=== PATIENT | male | born 1970 | race Caucasian/White ===

== ENCOUNTER 2022-12-22 09:14 | Outpatient (REF) | payer MEDICARE, SELFPAY | END 2022-12-22 09:15 | disposition home or self-care (01) | LOC: HO.LAB 09:14 | PROVIDERS: PCP Internal Medicine; Referring Provider Internal Medicine; Visit Provider Surgery | DX: L02.91 Cutaneous abscess, unspecified (principal) | CPT/HCPCS: 10060; 87070; 87205; 99202 ==

== ENCOUNTER → 2022-12-23 09:59 | Outpatient (BNVA) | payer BC, MEDICARE, SELFPAY | PROVIDERS: PCP Internal Medicine; Visit Provider Surgery | DX: Z48.00 Encounter for change or removal of nonsurgical wound dressing (principal); Z87.2 Personal history of diseases of the skin and subcutaneous tissue | CPT/HCPCS: 99211 ==

== ENCOUNTER → 2022-12-24 10:08 | Outpatient (BNVA) | payer MEDICARE, SELFPAY | PROVIDERS: PCP Internal Medicine; Visit Provider Surgery | DX: Z13.89 Encounter for screening for other disorder (principal) ==

== ENCOUNTER 2022-12-29 09:11 | Outpatient (REF) | payer MEDICARE, SELFPAY | END 2022-12-29 09:12 | disposition home or self-care (01) | LOC: HO.LAB 09:11 | PROVIDERS: PCP Internal Medicine; Visit Provider Surgery | DX: N49.2 Inflammatory disorders of scrotum (principal); Z79.899 Other long term (current) drug therapy | CPT/HCPCS: 87070; 87205; 99202 ==

== ENCOUNTER 2022-12-29 10:49 | Outpatient (REF) | payer SELFPAY | END 2022-12-29 10:50 | disposition home or self-care (01) | LOC: HO.LNP 10:49 | PROVIDERS: Visit Provider Surgery | DX: Z13.89 Encounter for screening for other disorder (principal) ==

== ENCOUNTER → 2022-12-30 10:17 | Outpatient (BNVA) | payer SELFPAY | PROVIDERS: PCP Internal Medicine; Visit Provider Surgery | DX: Z13.89 Encounter for screening for other disorder (principal) ==

== ENCOUNTER → 2022-12-31 10:16 | Outpatient (BNVA) | payer MEDICARE, SELFPAY | PROVIDERS: PCP Internal Medicine; Visit Provider Surgery | DX: Z48.00 Encounter for change or removal of nonsurgical wound dressing (principal) | CPT/HCPCS: 99211 ==

== ENCOUNTER → 2023-01-05 09:18 | Outpatient (BNVA) | payer MEDICARE, SELFPAY | PROVIDERS: PCP Internal Medicine; Visit Provider Surgery | DX: Z48.00 Encounter for change or removal of nonsurgical wound dressing (principal); Z87.2 Personal history of diseases of the skin and subcutaneous tissue | CPT/HCPCS: 99211 ==

== ENCOUNTER 2023-10-11 10:24 | Outpatient (REF) | payer MEDICARE, SELFPAY | END 2023-10-11 10:25 | disposition home or self-care (01) | LOC: HO.LNP 10:24 | PROVIDERS: PCP Internal Medicine; Visit Provider Surgery | DX: L02.214 Cutaneous abscess of groin (principal) | CPT/HCPCS: 10060; 87070; 87205; 99212 ==

== ENCOUNTER 2023-10-11 10:24 | Outpatient (AMB) | payer MEDICARE, SELFPAY ==
--- NOTE | 2023-10-11 10:25 | MHC.OFFVIS ---
Intake Vital Signs 10/11/23 10:35 Height 6 ft 1 in Weight 331 lb BMI 43.7 BP 148/72 H Blood Pressure Location Rt brachial Position Sitting Pulse 107 H Intake Visit Reasons: Recurrent abscess of groin Intake Note: Patient here for recurrent abscess on Rt groin. Recently started flaring due to stress from work. Patient was previously seen in December 2022 for Lt scrotum abscess. Patient has been doing witch dima soaks. Quality Assurance Monitor Required: No Accompanied by: Self / Same As Patient Allergies acetaminophen [From TYLENOL] Allergy (Intermediate, Verified 10/11/23 10:35) GI UPSET HPI HPI Comments History of Present Illness Details Patient with history of multiple groin abscesses presents with a similar 1 involving his right perineal area. He has had a several days time. His increasing size, become more painful and red. Chart was reviewed patient evaluate [facility] Medical History Diabetes mellitus Morbid obesity with BMI of 40.0-44.9, adult Surgical History History of right knee surgery Abscess Family History Mother No problems noted. Father No problems noted. Family/Other Substance use disorder Social History Housing: House Alcohol intake: never Patient Tobacco Use Status: Current everyday Tobacco user Tobacco use type: Cigar e-Cigarette/Vaping Use: Never Used Second Hand Smoke Exposure: No service: No Current occupational status: unemployed Cognitive needs: No Hearing needs: No Vision needs: Yes Physical Exam Vital Signs: Last Vital Signs Pulse 107 H 10/11/23 10:35 BP 148/72 H 10/11/23 10:35 BMI result Body Mass Index 43.7 Const Other: Very corpulent male Skin Other: Right mid groin crease abscess measuring approximately 4 x 3 cm. Office Procedures I&D Drain Details: Risks, benefits, alternative incision drainage of right groin abscess reviewed the patient included but not limited to bleeding, recurrence, numbness, pain, scarring the patient was to proceed. All questions were answered. After appropriate positioning, patient underwent 1% lidocaine and Betadine prep of a proximal 4 x 3 cm complex right groin crease abscess. Copious amounts of purulent material was retrieved. Cultures were obtained. Was irrigated, secured hemostasis, packed, and sterile dressing applied. Patient tolerated procedure well. 10089-Bplymwyz of Skin Abscess, complex All charges added?: Procedure code (CPT) selection complete Assessment & Plan Assessment & Plan (1) Abscess of groin, right: Code(s): L02.214 - Cutaneous abscess of groin Plan: Patient has been given antibiotics, allergies, VNA services provided by the office, and will see me as directed or p.r.n. Orders: Orders AMB Incision & Drainage Today L02.214 - Cutaneous abscess of groin Medications: New hydrocodone-acetaminophen 5-325 mg Partial Fill upon patient request. 1 tab PO Q4-6H PRN 30 tabs 0RF pain sulfamethoxazole-trimethoprim 400-80 mg (Bactrim) 1 tab PO BID 20 tabs 0RF Infection Coding Level of Care Code New Pt Level 5 (61444) Diagnoses Abscess of groin, right L02.214 CPT Codes I&D Drain - Drain 2: 71220-Juofeapv of Skin Abscess, complex ([id number])
[2023-10-11 10:35] VITALS: BP 148/72; PULSE 107; BMI 43.7
== END 2023-10-11 11:03 | disposition home or self-care (01) ==
PROVIDERS: PCP Internal Medicine; Visit Provider Surgery
DX: L02.214 Cutaneous abscess of groin (principal)
CPT/HCPCS: 10060; 99214

== ENCOUNTER → 2023-10-12 09:57 | Outpatient (BNVA) | payer MEDICARE, SELFPAY | PROVIDERS: PCP Internal Medicine; Visit Provider Surgery | DX: Z48.01 Encounter for change or removal of surgical wound dressing (principal) | CPT/HCPCS: 99211 ==

== ENCOUNTER → 2023-10-13 09:00 | Outpatient (BNVA) | payer MEDICARE, SELFPAY | PROVIDERS: PCP Internal Medicine; Visit Provider Surgery | DX: Z48.00 Encounter for change or removal of nonsurgical wound dressing (principal) | CPT/HCPCS: 99211 ==

== ENCOUNTER 2023-10-18 10:00 | Outpatient (AMB) | payer MEDICARE, SELFPAY ==
--- NOTE | 2023-10-18 10:06 | MHC.OFFVIS ---
Intake Vital Signs 10/18/23 10:07 Height 6 ft 1 in Weight 325 lb BMI 42.9 BP 168/77 H Blood Pressure Location Rt brachial Position Sitting Pulse 101 H Intake Visit Reasons: s/p I&D abscess of RT groin Intake Note: Patient here s/p I&D abscess on Rt groin. Patient finished Bactrin course. Patient c/o: oozing, pain. Requesting abx refill. 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 He has marked improvement of his symptoms. [facility] Medical History Diabetes mellitus Morbid obesity with BMI of 40.0-44.9, adult Surgical History History of right knee surgery Abscess Family History Mother No problems noted. Father No problems noted. Family/Other Substance use disorder Social History Housing: House Alcohol intake: never Patient Tobacco Use Status: Current everyday Tobacco user Tobacco use type: Cigar e-Cigarette/Vaping Use: Never Used Second Hand Smoke Exposure: No service: No Current occupational status: unemployed Cognitive needs: No Hearing needs: No Vision needs: Yes Physical Exam Vital Signs: Last Vital Signs Pulse 101 H 10/18/23 10:07 BP 168/77 H 10/18/23 10:07 BMI result Body Mass Index 42.9 Other: Right groin wound is almost completely healed by secondary intention. Complete resolution of the infective process. Assessment & Plan Assessment & Plan (1) Abscess of groin, right: Code(s): L02.214 - Cutaneous abscess of groin Plan Patient has been given local instructions, and will follow-up p.r.n.. Coding Level of Care Code Global (78472) Diagnoses Abscess of groin, right L02.214
[2023-10-18 10:07] VITALS: BP 168/77; PULSE 101; BMI 42.9
== END 2023-10-18 10:08 | disposition home or self-care (01) ==
PROVIDERS: PCP Internal Medicine; Visit Provider Surgery
DX: L02.214 Cutaneous abscess of groin (principal)
CPT/HCPCS: 99024

== ENCOUNTER → 2023-10-18 10:00 | Outpatient (BNVA) | payer MEDICARE, SELFPAY | PROVIDERS: PCP Internal Medicine; Visit Provider Surgery | DX: Z48.817 Encounter for surgical aftercare following surgery on the skin and subcutaneous tissue (principal); Z98.890 Other specified postprocedural states | CPT/HCPCS: 99212 ==

== ENCOUNTER 2024-03-12 10:22 | Outpatient (AMB) | payer MEDICARE, SELFPAY ==
--- NOTE | 2024-03-12 10:32 | AM.OFFVISMDC ---
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 PPI handed to patient. Declines pneumonia vaccine. Had Cologuard done 2022 which was negative and next will be 2025. A1c is elevated and he declines insulin but is willing to start metformin. He is morbidly obese with a BMI of 43.8 and he said he can do diet and exercise to decrease the weight. Last diabetic eye exam was over a year ago. Declines weight loss surgery. Walks with a cane for gait stability and has limited left arm movement secondary to his neck but declines any type of surgery. [facility] Medical History (Updated 03/12/24 @ 12:23 by Aileen Olson MD) Diabetes mellitus Morbid obesity with BMI of 40.0-44.9, adult Surgical History History of right knee surgery Abscess Family History Mother No problems noted. Father No problems noted. Family/Other Substance use disorder Social History Housing: House Alcohol intake: never Patient Tobacco Use Status: Current everyday Tobacco user Tobacco use type: Cigar e-Cigarette/Vaping Use: Never Used Second Hand Smoke Exposure: No service: No Current occupational status: unemployed Cognitive needs: No Hearing needs: No Vision needs: Yes Questionnaire Medicare Wellness Checkup What gender do you identify with?: male During the past 4 weeks, how much have you been bothered by emotional problems such as feeling anxious, depressed, irritable, sad or downhearted, and blue?: not at all During the past 4 weeks, has your physical & emotional health limited your social activities with family, friends, neighbors, or groups?: extremely During the past 4 weeks, how much bodily pain have you generally had?: severe pain During the past 4 weeks, was someone available to help you if you needed & wanted help?: yes, as much as I wanted During the past 4 weeks, what was the hardest physical activity you could do for at least 2 minutes?: very light Can you get to places out of walking distance without help? (For eg., can you travel alone on buses, taxis or drive your car?): Yes (short distance) Can you go shopping for groceries or clothes without someone's help?: No Can you prepare your own meals?: Yes Can you do your housework without help?: No Because of any health problems, do you need the help of another person with your personal care needs such as eating, bathing, dressing or getting around the house?: No Can you handle your own money without help?: Yes During the past 4 weeks, how would you rate your health in general?: poor During the past 4 weeks how have things been going for you?: very bad; could hardly be worse Are you having difficulties driving your car?: sometimes Do you always fasten your seat belt when you are in a car?: yes, usually During past 4 weeks, have you been bothered by the following: never: Falling or dizzy when standing up, Teeth or denture problems?, Problems using the telephone? and Tiredness or fatigue? and always: Sexual problems? and Trouble eating well? Have you fallen 2 or more times in the past year?: Yes Are you afraid of falling?: No Are you a smoker?: yes, and I might quit During the past 4 weeks, how many drinks of wine, beer, or other alcoholic beverages did you have?: no alcohol at all Do you exercise for about 20 minutes 3 or more times a week?: no, I usually do not exercise this much Have you been given information to help with the following?: no: Hazards in your house that might hurt you? and no: Keeping track of your medications? How often do you have trouble taking medicines the way you have been told to take them?: I always take medicine as prescribed How confident are you that you can control & manage most of your health problems?: somewhat confident What is your race?: or origin or descent Mini Mental State Exam (MMSE) Orientation What is the (year) (season) (date) (day) (month)?: year, season, date, day and month Where are we (state) (county) (town or city) (hospital) (floor)?: state, county, town or city, hospital/clinic and floor Registration Name of 3 unrelated objects clearly and slowly, then ask patient to repeat all 3 of them. (1st repeat determines score. Make sure they can repeat all three): object 1, object 2 and object 3 Attention & Calculation (CHOOSE ONE) Spell WORLD backwards (DLROW): 5 letters Recall Ask patient to repeat the 3 items from question #3.: object 1, object 2 and object 3 Language Show patient a wristwatch & ask what it is. Repeat for pencil.: watch and pencil Ask the patient to repeat the phrase 'No ifs, ands, or buts' after you.: correct Ask the patient to 'take a piece of paper with their right hand' 'fold paper in half' 'place paper on floor': take paper in right hand, fold paper in half and place paper on floor Print the sentence 'CLOSE YOUR EYES' on a piece. If patient actually closes eyes then score.: followed written direction Give patient a blank piece of paper & ask to write a sentence. Score if it contains a noun & verb.: sentence contains subject and verb Ask patient to copy figure of intersecting pentagons exactly. Score if all 10 angles & 2 intersects are included.: all 10 angles present & 2 are intersected Score Score: 30 Activity of Daily Living Bathing - sponge bath, tub bath or shower: receives no assistance (gets in/out by self, if usual bathing means Dressing - getting clothes from closets & drawers, including inner/outer garments & fasteners.: gets clothes & gets completely dressed without help Toileting - going to the 'toilet room' for urine/bowel elimination & cleaning self/arranging clothes: goes to toilet room, cleans self, arranges clothes without help Transfer: moves in & out of bed and chair without help (may use support object) Continence: controls urination/bowel movements completely by self Feeding: feeds self without help Total Score: 0 Information obtained from: patient Using telephone: independent Traveling: independent Shopping: needs assistance Preparing meals: needs assistance Housework: dependent Taking medicine: independent Managing money: independent PHQ-9 Over the last 2 weeks, how often have you been bothered by any of the following problems? 1. Little interest or pleasure in doing things: not at all 2. Feeling down, depressed, or hopeless: not at all 3. Trouble falling or staying asleep, or sleeping too much: not at all 4. Feeling tired or having little energy: not at all 5. Poor appetite or overeating: more than half the days 6. Feeling bad about yourself - or that you are a failure or have let yourself or your family down: not at all 7. Trouble concentrating on things, such as reading the newspaper or watching television: more than half the days 8. Moving or speaking so slowly that other people could have noticed. Or the opposite - being so fidgety or restless that you have been moving around a lot more than usual: not at all 9. Thoughts that you would be better off or of hurting yourself in some way: not at all Total score: 4 Depression Screening Interpretation: Negative Depression Screening Done: Yes 60764 - PHQ-9 Billing: Yes Source: Developed by Drs. Marco Antonio Lomeli, Shawnee Rivera, Roni Ho and colleagues, with an educational jacinda from [employer]. AUDIT C Alcohol Use Questionnaire (AUDIT-C) 1. How often do you have a drink containing alcohol?: Never Total Score: 0 Thrive Questionnaire Date Thrive assessed: 03/12/24 I am a: Patient What is your living situation today?: I have a steady place to live Within the past 12 months, did the food you bought not last and you didn't have the money to get more?: Never true Within the past 12 months, did you worry whether your food would run out before you got money to buy more?: Never true Do you have trouble paying for medicines?: No Do you have trouble getting transportation to medical appointments?: No Do you have trouble paying your heating and electricity bill?: No Do you have trouble taking care of your child, family member or friend?: No Do you have trouble with day-to-day activities such as bathing, preparing meals, shopping, managing finances, etc.?: Yes Are you currently unemployed and looking for a job?: No Are you interested in more education?: No Please select the resources that you would like help with: None Currently or been in a relationship where the following occur: no concerns reported THRIVE Score: 0 JV-7 AMB Questionnaire JV-7 Date JV - 7 assessed: 03/12/24 Feeling nervous, anxious, or on edge: 0 = Not at all Not being able to stop or control worryin = Not at all Worrying too much about different things: 0 = Not at all Trouble relaxin = Not at all Being so restless that it is hard to sit still: 0 = Not at all Becoming easily annoyed or irritable: 0 = Not at all Feeling afraid as if something awful might happen: 0 = Not at all Total JV-7 score (0-4 normal; 5-9 mild; 10-14 moderate; 15-21 severe): 0 Source: Developed by Drs. Marco Antonio Lomeli, Shawnee Rivera, Roni Ho and colleagues, with an educational jacinda from [employer]. Review of Systems Const All systems reviewed & are unremarkable except as noted in HPI and below Eyes Reports no additional complaints, Denies change in vision and Denies other visual disturbances Card Denies chest pain at rest, Denies chest pain with activity, Denies edema, Denies irregular heart rhythm, Denies claudication, Denies dyspnea, Denies dyspnea on exertion, Denies orthopnea, Denies paroxysmal nocturnal dyspnea and Denies slow heart rate Resp Denies cough, Denies dyspnea and Denies dyspnea on exertion GI Denies abdominal pain, Denies change in bowel habits, Denies excessive flatus, Denies nausea and Denies vomiting Denies urinary hesitancy, Denies urinary incontinence and Denies urinary urgency Physical Exam Vital Signs: Last Vital Signs BP 158/100 H 03/12/24 10:37 BMI result Body Mass Index 43.8 Const Limitations: ambulation with cane Resp Effort & Inspection: normal respiratory effort Auscultation: clear to auscultation bilaterally Cardio Jugular venous distension: no JVD Rate: regular rate Rhythm: regular rhythm Heart sounds: S1 normal heart sound present and S2 normal heart sound present Neuro Romberg Test: Negative Results AMB Hemoglobin A1c AMB Hemoglobin A1c 9.7 % Last Edit by JAILENE Ledemza on 03/12/24 10:56 Results Reviewed Results Reviewed: Laboratory Last Values Hgb A1c (Clinic) 9.7 % (4.0-6.0) H 03/12/24 10:52 Assessment & Plan Assessment & Plan (1) Encounter for subsequent annual wellness visit (AWV) in Medicare patient: Code(s): Z00.00 - Encounter for general adult medical examination without abnormal findings Plan: Repeat in a year (2) Diabetes mellitus: Comment: Refuse to test his glucose, do labs or take medications Code(s): E11.9 - Type 2 diabetes mellitus without complications Plan: Start metformin. A1c goal is equal or less than 7%. (3) Morbid obesity with BMI of 40.0-44.9, adult: Code(s): E66.01 - Morbid (severe) obesity due to excess calories; Z68.41 - Body mass index [BMI] 40.0-44.9, adult Plan: Start diet and exercise. BMI goal is less than 30. Orders: Orders Microalbumin, Random (w Creat) Today E11.9 - Type 2 diabetes mellitus without complications Thyroid Stimulating Hormone Today E66.01 - Morbid (severe) obesity due to excess calories, Z68.41 - Body mass index [BMI] 40.0-44.9, adult AMB Hemoglobin A1c Today E11.9 - Type 2 diabetes mellitus without complications Lipid Panel Today E11.9 - Type 2 diabetes mellitus without complications Vitamin D 25-OH Total Today E55.9 - Vitamin D deficiency, unspecified Comprehensive [place]. Panel Fast Today E11.9 - Type 2 diabetes mellitus without complications Complete Blood Count Auto Diff Today E66.01 - Morbid (severe) obesity due to excess calories, Z68.41 - Body mass index [BMI] 40.0-44.9, adult Medications: New metformin 500 mg PO BID 180 tabs 3RF 90 days E11.9 - Type 2 diabetes mellitus without complications Quality Reporting (2019) Depression/Bipolar (159/160/161/177) PHQ-9: Total score: 4 Coding Level of Care Code Medicare Subsequent (G0439) Diagnoses Encounter for subsequent annual wellness visit (AWV) in Medicare patient Z00.00 Diabetes mellitus E11.9 Morbid obesity with BMI of 40.0-44.9, adult E66.01; Z68.41 Time Spent (min) 35
[2024-03-12 10:37] VITALS: BP 158/100; BMI 43.8
== END 2024-03-12 11:23 | disposition home or self-care (01) ==
PROVIDERS: PCP Internal Medicine; Visit Provider Internal Medicine
DX: Z00.00 Encounter for general adult medical examination without abnormal findings (principal); E11.9 Type 2 diabetes mellitus without complications; E66.01 Morbid (severe) obesity due to excess calories; Z68.41 Body mass index [BMI] 40.0-44.9, adult
CPT/HCPCS: 83036; G0439

== ENCOUNTER 2024-05-10 13:32 | Outpatient (AMB) | payer MEDICARE, SELFPAY ==
--- NOTE | 2024-05-10 13:32 | A.OFFVIS_ITS ---
Vital Signs 05/10/24 13:33 Height 6 ft 1 in Weight 332 lb 0.011 oz BMI 43.8 Intake Visit Reasons: Right groin abscess Intake Note: This patient presents for an assessment for a right groin abscess. Patient c/o; right groin abscess. 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 He has a history of this and had been following Dr. Dye last year for similar problems. He says that he has another right groin abscess. He noticed this about a week ago and this seems to be persistently tender and increasing in size. He has a known diabetic. [facility] Medical History Diabetes mellitus Morbid obesity with BMI of 40.0-44.9, adult Surgical History History of right knee surgery Abscess Family History Mother No problems noted. Father No problems noted. Family/Other Substance use disorder Social History Housing: House Alcohol intake: never Patient Tobacco Use Status: Current everyday Tobacco user Tobacco use type: Cigar e-Cigarette/Vaping Use: Never Used Second Hand Smoke Exposure: No service: No Current occupational status: unemployed Cognitive needs: No Hearing needs: No Vision needs: Yes Review of Systems Const Denies chills and Denies fever(s) Card Denies chest pain, Denies dyspnea and Denies dyspnea on exertion Resp Denies cough, Denies dyspnea and Denies dyspnea on exertion GI Denies hematochezia and Denies change in bowel habits Denies hematuria and Denies difficulty urinating Musc Denies back pain and Denies limited range of motion Neuro Denies focal weakness and Denies convulsions Psych Denies depression and Denies mood swings Physical Exam Vital Signs: BMI result Body Mass Index 43.8 Const General: comfortable and no acute distress Orientation/consciousness: patient oriented x3 Neck Neck: Yes no lymphadenopathy Resp Auscultation: clear to auscultation bilaterally Cardio Rhythm: regular rhythm GI Palpation (GI): Soft to palpation, nontender and no guarding Skin Other: Right groin with note of a fluctuant mass, about 2.5 cm, tender Neuro General: patient oriented x3 Office Procedures I&D Drain Details: He was in frog-leg position. The area of the abscess on the right groin was prepped and draped. Lidocaine 1% was used for local anesthesia. I made an incision on the skin overlying this fluctuant mass with a blade 15. This was carried down to enter an abscess cavity. Purulent fluid was drained. I probed the cavity with a Q-tip and this appeared to be empty Dressings were applied. The procedure was completed. He tolerated procedure well. There were no immediate complications. 73100-Mekzmral of Skin Abscess, complex All charges added?: Procedure code (CPT) selection complete Assessment & Plan Assessment & Plan (1) Abscess of groin, right: Code(s): L02.214 - Cutaneous abscess of groin Category: Surgical Plan: I explained to him it would be best to do an I and D again. I reviewed with him the technique of this procedure. I explained the risks including but not limited to bleeding and infections, as well as the benefits and alternatives. He would given consent. I&D was done under local anesthesia. He tolerated that well. Dressings were applied he was given wound care instructions. He can follow up with me on a p.r .n. basis. Coding Level of Care Code Est Pt Level 3 (76022) Diagnoses Abscess of groin, right L02.214 CPT Codes I&D Drain - Drain 2: 01787-Wwzdvoyg of Skin Abscess, complex ([id number])
[2024-05-10 13:33] VITALS: BMI 43.8
== END 2024-05-10 14:15 | disposition home or self-care (01) ==
PROVIDERS: PCP Internal Medicine; Visit Provider Surgery
DX: L02.214 Cutaneous abscess of groin (principal)
CPT/HCPCS: 10060; 99213

== ENCOUNTER → 2024-05-10 13:32 | Outpatient (BNVA) | payer MEDICARE, SELFPAY | PROVIDERS: PCP Internal Medicine; Visit Provider Surgery | DX: L02.214 Cutaneous abscess of groin (principal) | CPT/HCPCS: 10060; 99212 ==

== ENCOUNTER 2025-03-20 12:06 | Emergency (ER) | payer MEDICARE, SELFPAY ==
--- NOTE | ~2025-03-20 | XR_ITS ---
EXAMINATION: XR CHEST CLINICAL INFORMATION: cp COMPARISON: None available. TECHNIQUE: 2 views of the chest were obtained. FINDINGS: The cardiac, hilar, and mediastinal contours are normal. The lungs are clear bilaterally. There is no pneumothorax or pleural effusion. There is no focal osseous or soft tissue abnormality. XR/XR chest 2V IMPRESSION: Normal chest. Electronically signed by: Veto Ahmadi MD 03/20/2025 01:42 PM EDT
--- NOTE | ~2025-03-20 | CT_ITS ---
EXAMINATION: CT ANGIOGRAM CHEST CLINICAL INFORMATION: Dyspnea, elevated d-dimer. COMPARISON: No prior CT. Chest radiograph dated earlier same day. TECHNIQUE: Multiple axial images were obtained through the chest after the administration of 50 mL of Omnipaque 350 intravenous contrast. Extensive vascular post-processing including two-dimensional and three-dimensional reformatted images were created and reviewed on an independent workstation. This CT examination was performed using dose optimization techniques as appropriate, variously including the following: *Automated exposure control *Adjustment of mA and/or kV according to patient size (this includes techniques or standardized protocols for targeted exams where dose is matched to indication/reason for exam; i.e. extremities or head) *Use of iterative reconstruction technique FINDINGS: VASCULAR: -There is diagnostic opacification of the pulmonary arterial system. There is no pulmonary embolus. Main pulmonary artery is normal in size. There is no right heart strain and there is no reflux of contrast into the hepatic veins. -The aorta is normal in caliber and contour. There is no aneurysm or acute aortic syndrome. -The heart size is normal. There is no pericardial effusion. LUNGS: -There are no consolidations or abnormal groundglass opacities. -There is thickening of the small airways suggesting inflammatory airways disease. -There are secretions within the distal trachea just above the chari. Central airways otherwise patent. -There is a 5 mm nodule in the peripheral right lower lobe (series 5, image 88). -There is a 5 mm nodule in the lateral left upper lobe (series 5, image 35). -There is a 5 mm fissural nodule in the left major fissure, consistent with intrapulmonary lymph node (series 5, image 56). -There is mild fibrosis abutting spinal osteophytes in the medial right lower lobe. -There is no effusion or pneumothorax. MEDIASTINUM: -The esophagus is mildly patulous. There is a small type I hiatus hernia. -There is no adenopathy or mass. -Normal thyroid. AXILLA/CHEST WALL: No masses or abnormal lymph nodes. IMAGED UPPER ABDOMINAL CONTENTS: -Normal. OSSEOUS STRUCTURES: -No suspicious lytic or blastic bone lesions. -There are degenerative changes throughout the spine. CT/CT angio chest PE protocol IMPRESSION: 1. There is no evidence of pulmonary embolus. There is no evidence of acute aortic syndrome. 2. There is mild thickening of the small airways, suggesting inflammatory airways disease. 3. The lungs are clear without evidence of active disease otherwise. 4. There are 5 mm nodules in the right lower lobe and lateral left upper lobe. These are nonspecific in one year follow-up suggested in a high-risk patient. 5. Mildly patulous esophagus with a small type I hiatus hernia. Electronically signed by: Veto Ahmadi MD 03/20/2025 03:35 PM EDT RP
--- NOTE | 2025-03-20 12:33 | ECG_ITS ---
Test Reason : CHEST PAIN Blood Pressure : */* mmHG Vent. 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
--- NOTE | 2025-03-20 12:46 | ED_ITS ---
HPI - Chest Pain General Chief Complaint: Chest Pain Stated Complaint: Chest Pain Time Seen by Provider: 03/20/25 13:52 Source: patient Mode of arrival: ambulatory History of Present Illness ED Provider: HPI narrative: 54-year-old male, does not take medications regular basis not because he is not prescribed by because he refuses to, smokes marijuana and cigars, presenting with left-sided sternal chest pain nonradiating, no fevers or chills, no hemoptysis reported, pain is worse with a deep breath, no recent surgeries no prolonged travel no history of DVTs or PEs. Related Data Previous Rx's ?Medication ?Instructions ?Recorded metformin 500 mg tablet 500 mg PO BID 90 days #180 tabs 03/12/24 Allergies Allergy/AdvReac Type Severity Reaction Status Date / Time acetaminophen [From TYLENOL] Allergy Intermediate GI UPSET Verified 03/20/25 12:49 Review of Systems 2 Constitutional: Constitutional: Reports as per [facility] Past Medical History Medical History Diabetes mellitus Morbid obesity with BMI of 40.0-44.9, adult Surgical History History of right knee surgery Abscess Family History Family History Mother No problems noted. Father No problems noted. Family/Other Substance use disorder Social History Social History Housing: House Alcohol intake: never Patient Tobacco Use Status: Current everyday Tobacco user Tobacco use type: Cigar e-Cigarette/Vaping Use: Never Used Second Hand Smoke Exposure: No Advance Directives: No Advance Directives Information Provided: Yes Do you have a plan to hurt others: No Plan service: No Current occupational status: unemployed Cognitive needs: No Hearing needs: No Vision needs: Yes Physical Exam 2 Vital Signs: Vital Signs: Last Vital Signs Temp 97 F 03/20/25 15:30 Pulse 66 03/20/25 15:30 Resp 17 03/20/25 15:30 BP 162/90 H 03/20/25 15:30 Pulse Ox 98 03/20/25 15:30 O2 Del Method Room Air 03/20/25 15:30 BMI result Body Mass Index 39.1 * Gen: ?Overall well-appearing patient * HEENT: PERRLA, EOMI, MMM, * Neck: Supple, no LAD * CV: RRR, no obvious murmurs appreciated * Resp: ?No wheezing rales rhonchi no stridor moving air well, no chest wall tenderness * Abd: ?Bowel sounds are present, no tenderness no rebound no rigidity * MSK: FROM, strength 5/5 all extremities * Skin: Warm, dry, intact, * Neuro: ?Alert and oriented x3, moving upper and lower extremities symmetrically, no obvious facial asymmetry noted Course Course Course Narrative: This is a Rapid Medical Exam performed in triage by Tran Hanley PA-C. Full HPI, ROS and PE to be performed by primary ED provider. 54 yo M w/PMHx obesity, DM (noncompliant on meds), presenting to the ED c/o CP x few days, worse today, with assoc SOB. Pain described as sharpn & tightness. denies N/V PE: NAD, nontoxic appearing, talking in complete sentences Plan: EKG, labs, CXR Medications Administered Discontinued Medications Generic Name Dose Route Start Last Admin Trade Name Freq PRN Reason Stop Dose Admin Iohexol 100 ml 03/20/25 15:14 03/20/25 15:15 Iohexol 350 Mg/Ml 100 Ml Infus..Btl IV 03/20/25 15:15 75 ml ONCE ONE Administration Medical Decision Making Medical Decision Making [facility] Narrative: We will workup for ACS, unable to PERC out due to age but no hypoxia tachycardic so my suspicion for PE is low, ECG did not show any ongoing cardiac ischemia, chest x-ray to evaluate for other considerations as below, if workup specifically cardiac workup was negative anticipating discharge, Differential Diagnosis Differential Diagnoses: The differential diagnosis associated with the presentation includes ACS, pneumothorax, pneumonia, CHF, PE, Boerhaave syndrome Admission/Observation Consideration of admission/observation: Escalation of care including admission/observation considered Lab Data [facility] Lab Attestation statement: I reviewed the patient's lab results. 03/20/25 13:54 03/20/25 13:54 Labs: Lab Results 03/20/25 03/20/25 03/20/25 Range/Units 13:54 13:58 14:59 WBC 6.7 (4.8-10.8) X10*3/uL RBC 5.27 (4.60-5.80) X10*6/uL Hgb 14.3 (14.0-18.0) g/dl Hct 43.5 (42.0-52.0) % MCV 82.5 (80.0-98.0) fL MCH 27.1 (27.0-33.0) pg MCHC 32.9 (31.0-36.0) g/dl RDW 14.3 (11.0-16.0) % Plt Count 192 (160-400) X10*3/uL MPV 10.0 (9.4-12.4) fL Immature Gran % (Auto) 0.2 (0.0-0.4) % Neut % (Auto) 60.7 (45-73) % Lymph % (Auto) 29.4 (20-40) % [place] % (Auto) 6.8 (2-11) % Eos % (Auto) 2.4 (0-4) % Baso % (Auto) 0.5 (0-2) % Lymph # (Auto) 2.0 (1.2-4.9) X10*3/uL [place] # (Auto) 0.5 (0.1-1.2) X10*3/uL Eos # (Auto) 0.2 (0.0-0.4) X10*3/uL Baso # (Auto) 0.0 (0.0-0.2) X10*3/uL Abs Immat Gran (auto) 0.01 (0.00-0.03) X10*3/uL Absolute Neuts (auto) 4.1 (2.0-8.3) x10*3/uL Absolute Nucleated RBC 0.000 (0.0-0.012) X10*3/uL Nucleated RBC % (auto) 0.0 (0.0-0.2) /100WBC D-Dimer High Sensitivty 276 NG/ML Sodium 140 (135-145) mmol/L Potassium 4.5 (3.3-5.1) mmol/L Chloride 106 (96-108) mmol/L Carbon Dioxide 28 (22-29) mmol/L Anion Gap 11 L (12-20) BUN 12 (9-16) mg/dL Creatinine 0.71 (0.5-1.4) mg/dL Estim Creat Clear Calc 169.1 Estimated GFR > 60 POC Glucose 125 H (60-115) mg/dL Random Glucose 140 H (60-115) mg/dL Estimat Average Glucose 163 mg/dL Hemoglobin A1c % 7.3 H (<6.0) % Calcium 9.2 (8.4-10.2) mg/dL Magnesium 2.1 (1.6-2.6) mg/dL Total Bilirubin 0.4 (0.0-1.0) mg/dL Direct Bilirubin 0.2 (0.0-0.5) mg/dL AST 21 (5-37) U/L ALT 15 (0-40) U/L Alkaline Phosphatase 69 (39-117) U/L Troponin I High Sens < 2.7 (<3.5-35.0) ng/L Total Protein 7.1 (6.5-8.0) g/dL Albumin 4.4 (3.5-5.0) g/dL Independent Interpretation I performed an independent interpretation of an: EKG (71 otherwise normal ECG without dysrhythmia, AV dian blocks or ST-T changes to suspect underlying ACS, my independent interpretation) Radiology Impression Discussion of test interpretation with radiology: I have reviewed the radiologist's reading. Radiologist Impression: [address] [address] XRay Report IMPRESSION: Normal chest. [address] [address] [address] Scan Report Signed Patient: Sumit Edgar MR#: [id number] : 1970 Acct:[id number] Age/Sex: 54 / M ADM Date: 03/20/25 Loc: .ED Attending Dr: Ordering Physician: Siddharth Moncada DO Date of Service: 03/20/25 Procedure(s): CT angio chest PE protocol Accession Number(s): [id number] cc: Aileen Lee MD; Siddharth Moncada DO~ Report Number: [id number]: Total DLP = 530.00 mGy-cm EXAMINATION: CT ANGIOGRAM CHEST CLINICAL INFORMATION: Dyspnea, elevated d-dimer. COMPARISON: No prior CT. Chest radiograph dated earlier same day. TECHNIQUE: Multiple axial images were obtained through the chest after the administration of 50 mL of Omnipaque 350 intravenous contrast. Extensive vascular post-processing including two-dimensional and three-dimensional reformatted images were created and reviewed on an independent workstation. This CT examination was performed using dose optimization techniques as appropriate, variously including the following: *Automated exposure control *Adjustment of mA and/or kV according to patient size (this includes techniques or standardized protocols for targeted exams where dose is matched to indication/reason for exam; i.e. extremities or head) *Use of iterative reconstruction technique FINDINGS: VASCULAR: -There is diagnostic opacification of the pulmonary arterial system. There is no pulmonary embolus. Main pulmonary artery is normal in size. There is no right heart strain and there is no reflux of contrast into the hepatic veins. -The aorta is normal in caliber and contour. There is no aneurysm or acute aortic syndrome. -The heart size is normal. There is no pericardial effusion. LUNGS: -There are no consolidations or abnormal groundglass opacities. -There is thickening of the small airways suggesting inflammatory airways disease. -There are secretions within the distal trachea just above the chari. Central airways otherwise patent. -There is a 5 mm nodule in the peripheral right lower lobe (series 5, image 88). -There is a 5 mm nodule in the lateral left upper lobe (series 5, image 35). -There is a 5 mm fissural nodule in the left major fissure, consistent with intrapulmonary lymph node (series 5, image 56). -There is mild fibrosis abutting spinal osteophytes in the medial right lower lobe. -There is no effusion or pneumothorax. MEDIASTINUM: -The esophagus is mildly patulous. There is a small type I hiatus hernia. -There is no adenopathy or mass. -Normal thyroid. AXILLA/CHEST WALL: No masses or abnormal lymph nodes. IMAGED UPPER ABDOMINAL CONTENTS: -Normal. OSSEOUS STRUCTURES: -No suspicious lytic or blastic bone lesions. -There are degenerative changes throughout the spine. CT/CT angio chest PE protocol IMPRESSION: 1. There is no evidence of pulmonary embolus. There is no evidence of acute aortic syndrome. 2. There is mild thickening of the small airways, suggesting inflammatory airways disease. 3. The lungs are clear without evidence of active disease otherwise. 4. There are 5 mm nodules in the right lower lobe and lateral left upper lobe. These are nonspecific in one year follow-up suggested in a high-risk patient. 5. Mildly patulous esophagus with a small type I hiatus hernia. Discharge Plan Discharge Clinical Impression: Chest pain, precordial Patient Disposition: Home, Self-Care Additional Instructions: Diagnosis and Initial Evaluation: You have been evaluated in the Emergency Department (ED) for chest pain. Based on your clinical assessment, electrocardiogram (ECG), and high-sensitivity cardiac troponin (hs-cTn) levels, you have been classified as low-risk for acute coronary syndrome (ACS) and myocardial infarction (NM). You also had CAT scan of the chest to make sure there are no blood clots, and there are some nonspecific nodules that will require outpatient follow-up and repeat CAT scan at some point within 6 months to a year for monitoring, I recommend to make sure you have follow up with the PCP. Otherwise for your pain you can take Naprosyn 500 mg twice a day or Tylenol 975 mg every 6 hours, worsening symptoms come back to the ER, see my discharge instructions as below Follow-Up Care: ? Primary Care Provider (PCP) or Public Health Physician: It is important to follow up with your primary care provider or abstract writer within the next 14 to 30 days. This follow-up is crucial to ensure that any underlying conditions are managed appropriately and to discuss any further testing that may be needed. ? Notification: If you have an established PCP or abstract writer, they have been notified of your ED visit to facilitate continuity of care. Self-Care and Monitoring: ? Medications: Continue taking any prescribed medications as directed. If you have been given new medications, ensure you understand how and when to take them. ? Activity: Resume normal activities as tolerated. Avoid strenuous activities until you have discussed them with your healthcare provider. ? Diet: Maintain a heart-healthy diet, low in saturated fats, cholesterol, and sodium. Red Flags: Seek immediate medical attention if you experience any of the following: ? New or worsening chest pain ? Shortness of breath ? Dizziness or fainting ? Pain radiating to your arm, neck, or jaw ? Sweating, nausea, or vomiting Additional Testing: In some cases, outpatient testing such as a stress test or imaging may be recommended to further evaluate your heart health. Your follow-up provider will discuss this with you if necessary. Mental Health: Anxiety and stress can contribute to chest pain. Consider discussing any concerns with your healthcare provider, who may recommend screening for anxiety or depression and appropriate management strategies. Contact Information: If you have any questions or concerns before your follow-up appointment, please contact your healthcare provider or the ED where you were evaluated. Summary: You have been discharged from the ED with a low risk of serious heart conditions. Follow the instructions above, attend your follow-up appointments, and seek immediate care if you experience any red flags. Prescriptions: No Action metformin 500 mg tablet 500 mg PO BID 90 Days Qty: 180 3RF Referrals: Aileen Lee MD [Primary Care Provider] - Print Language: Anguillan
[2025-03-20 12:47] VITALS: BP 148/85; PULSE 68; RESP 18; TEMP 36.5; O2SAT 99; BMI 39.1
[2025-03-20 14:02] LABS: MANUAL DIFF FLAG NO
[2025-03-20 14:08] LABS: Hematocrit 43.5 % (42.0-52.0); Hemoglobin 14.3 g/dl (14.0-18.0); Imm Gran Pct Auto 0.2 % (0.0-0.4); Mean Corpuscular HGB Conc 32.9 g/dl (31.0-36.0); Mean Corpuscular Hemoglobin 27.1 pg (27.0-33.0); Mean Corpuscular Volume 82.5 fL (80.0-98.0); Neutrophils Percent Auto 60.7 % (45-73); Platelet Count 192 X10*3/uL (160-400); Red Blood Count 5.27 X10*6/uL (4.60-5.80); Red Cell Distribution Width 14.3 % (11.0-16.0); White Blood Count 6.7 X10*3/uL (4.8-10.8)
[2025-03-20 14:09] LABS: Basophils Percent Auto 0.5 % (0-2); Eosinophils Absolute Auto 0.2 X10*3/uL (0.0-0.4); Eosinophils Percent Auto 2.4 % (0-4); Imm Gran Abs Auto 0.01 X10*3/uL (0.00-0.03); Lymphocytes Percent Auto 29.4 % (20-40); Monocytes Absolute Auto 0.5 X10*3/uL (0.1-1.2); Monocytes Percent Auto 6.8 % (2-11); Neutrophils Absolute Auto 4.1 x10*3/uL (2.0-8.3)
[2025-03-20 14:20] LABS: D Dimer High Sensitivity 276 NG/ML
[2025-03-20 14:31] LABS: Estimated Average Glucose 163 mg/dL; Hemoglobin A1C 207.0811 umol/L; Hemoglobin A1c % 7.3 % (<6.0)
[2025-03-20 14:36] LABS: Alanine Aminotransferase 15 U/L (0-40); Albumin Level 4.4 g/dL (3.5-5.0); Alkaline Phosphatase 69 U/L (39-117); Anion Gap 11 (12-20); Aspartate Amino Transferase 21 U/L (5-37); Bilirubin Direct 0.2 mg/dL (0.0-0.5); Bilirubin Total 0.4 mg/dL (0.0-1.0); Blood Urea Nitrogen 12 mg/dL (9-16); Calcium 9.2 mg/dL (8.4-10.2); Carbon Dioxide 28 mmol/L (22-29); Chloride 106 mmol/L (96-108); Creatinine Clr Calc Pharmacy 169.1; Estimated Glomerular Filt Rate > 60; Glucose Random 140 mg/dL (60-115); Magnesium 2.1 mg/dL (1.6-2.6); Potassium 4.5 mmol/L (3.3-5.1); Sodium 140 mmol/L (135-145); Total Protein 7.1 g/dL (6.5-8.0); Troponin-I High Sensitivity < 2.7 ng/L (<3.5-35.0)
[2025-03-20 15:06] LABS: Glucose, Whole Blood 125 mg/dL (60-115)
[2025-03-20] MEDS: iohexoL 350 MG/ML 100 ML INFUS..BTL IV (15:15)
[2025-03-20 15:30] VITALS: BP 162/90; PULSE 66; RESP 17; TEMP 36.1; O2SAT 98
[2025-03-20] MEDS: Ketorolac Tromethamine 15 MG/ML VIAL IVPUSH (16:22)
[2025-03-20 16:29] VITALS: BP 162/87; PULSE 69; RESP 18; TEMP 36.7; O2SAT 99
== END 2025-03-20 16:46 | disposition home or self-care (01) ==
PROVIDERS: Physician Assistant; Emergency Provider Emergency Medicine; PCP Internal Medicine
DX: R07.89 Other chest pain (principal); F12.90 Cannabis use, unspecified, uncomplicated; R94.31 Abnormal electrocardiogram [ECG] [EKG]; R10.2 Pelvic and perineal pain; Z79.899 Other long term (current) drug therapy
CPT/HCPCS: 36415; 71046; 71275; 80048; 80076; 82947; 83036; 83735; 84484; 85025; 85379; 93005; 96374; 99284; J1885; Q9967

== ENCOUNTER → 2025-03-20 12:33 | Outpatient (BNV) | payer MEDICARE, SELFPAY | PROVIDERS: Emergency Provider Emergency Medicine; PCP Internal Medicine; Visit Provider Internal Medicine Cardiovascular Disease | DX: I49.3 Ventricular premature depolarization (principal); I25.2 Old myocardial infarction | CPT/HCPCS: 93010 ==

== ENCOUNTER → 2025-03-20 12:49 | Outpatient (BNV) | payer MEDICARE, SELFPAY | PROVIDERS: Emergency Provider Emergency Medicine; PCP Internal Medicine; Visit Provider Radiology Diagnostic Radiology | DX: R91.8 Other nonspecific abnormal finding of lung field (principal); R07.9 Chest pain, unspecified | CPT/HCPCS: 71046; 71275 ==